=== PATIENT | male | born 1965 | race Caucasian/White ===

== ENCOUNTER 2021-02-07 15:24 | Inpatient (IN) | payer MEDICAID ==
[~2021-02-07] VITALS: Ht 177.8 cm; Wt 102.3 kg
[2021-02-07] MEDS ORDERED: acetaminophen 325mg tablet PO STA (15:53)
[2021-02-07] MEDS ORDERED: normal saline 1000ML IV soln IV ONE (15:55)
[2021-02-07] MEDS ORDERED: dexamethasone sod phosphate 10mg/ml inj IV STA (16:26)
[2021-02-07 16:28] LABS: BASOPHILS # (AUTO) 0.1 X10'3 (0-0.2); BASOPHILS % (AUTO) 0.8 % (0-1); EOSINOPHILS % (AUTO) 0.2 % (0-6); HEMATOCRIT 37.5 % (42.0-52.0); HEMOGLOBIN 13.3 g/dl (14.0-17.9); LYMPHOCYTES # (AUTO) 1.1 X10'3 (1.1-4.8); LYMPHOCYTES % (AUTO) 17.5 % (21-51); MEAN CORPUSCULAR HEMOGLOBIN 30.4 PG (27.0-31.0); MEAN CORPUSCULAR HGB CONC 35.4 g/dL (33.0-36.5); MEAN PLATELET VOLUME 6.7 FL (7.4-10.4); MONOCYTES # (AUTO) 0.5 X10'3 (0-0.9); MONOCYTES % (AUTO) 8.3 % (2-12); NEUTROPHILS # (AUTO) 4.5 X10'3 (1.8-7.7); NEUTROPHILS % (AUTO) 73.2 % (42-75); PLATELET COUNT 248 X10'3 (140-440); RED BLOOD COUNT 4.37 X10'6 (4.70-6.10); RED CELL DISTRIBUTION WIDTH 12.6 % (11.5-14.5); WHITE BLOOD COUNT 6.1 X10'3 (4.5-11.0)
[2021-02-07 16:42] LABS: ALANINE AMINOTRANSFERASE 22 U/L (12-78); ALBUMIN 3.2 G/DL (3.4-5.0); ALBUMIN/GLOBULIN RATIO 0.7 (1.1-1.5); ALKALINE PHOSPHATASE 80 IU/L (46-116); ANION GAP 10 (8-16); ASPARTATE AMINO TRANSFERASE 51 U/L (10-37); BILIRUBIN,TOTAL 0.6 MG/DL (0.1-1.0); BLOOD UREA NITROGEN 28 MG/DL (7-18); CALCIUM 8.7 MG/DL (8.5-10.1); CHLORIDE 100 MMOL/L (99-107); CREATININE 1.27 MG/DL (0.60-1.10); GLUCOSE 157 MG/DL (70-104); MAGNESIUM 1.9 MG/DL (1.5-2.4); POTASSIUM 3.7 MMOL/L (3.5-5.1); SODIUM 137 MMOL/L (135-145); TOTAL CARBON DIOXIDE 27.3 MMOL/L (24-32); TOTAL PROTEIN 7.8 G/DL (6.4-8.2); eGFR 59 ML/MIN
[2021-02-07 16:54] LABS: MICROCYTOSIS 1+; PLATELET ESTIMATE NORMAL; TOTAL CELLS COUNTED 100
[2021-02-07] MEDS ORDERED: CefTRIAXone 2gm/D5W 50ml BAG 50 ML IV ONE (17:50)
[2021-02-07 18:09] LABS: CLARITY,URINE CLEAR (Clear); COLOR,URINE YELLOW (Yellow); GLUCOSE, URINE NEGATIVE (Neg); KETONES,URINE NEGATIVE (Neg); LEUKOCYTE ESTERASE ,URINE NEGATIVE (Neg); NITRITES, URINE NEGATIVE (Neg); OCCULT BLOOD,URINE NEGATIVE (Neg); PROTEIN,URINE 30 mg/dl (Neg); UROBILINOGEN,URINE 0.2 E.U/dL (0.2-1.0)
[2021-02-07 18:12] LABS: UA COLLECTION TYPE VOIDED
[2021-02-07 18:15] LABS: BACTERIA,URINE NONE SEEN /HPF (Neg); HYALINE CASTS 0-3 /LPF (NEGATIVE); MUCUS STRANDS FEW /LPF (Neg); RBC,URINE NONE SEEN /HPF (0-2); SQUAMOUS EPITHELIAL CELL,UR FEW /LPF (FEW); WBC,URINE 0-4 /HPF (0-4)
[2021-02-07] MEDS ORDERED: furosemide 10 MG/1 ML 10ml inj IV ONE (19:15)
[2021-02-07] MEDS ORDERED: furosemide 20 MG/2 ML vial IV ONE (19:20)
--- NOTE | 2021-02-07 19:28 | NUR ---
Hold lasix for further evaluation
[2021-02-07] MEDS ORDERED: DEXAMETHASONE 6 MG TABLET PO ONE (20:00)
[2021-02-07] MEDS: enoxaparin 40mg/0.4ml syringe SUBCUT SCH (20:00)
[2021-02-07] MEDS ORDERED: enoxaparin 40mg/0.4ml syringe SUBCUT SCH (20:10)
[2021-02-07] MEDS ORDERED: magnesium 4gm in 100ml NS 100 ML IV PRN (20:10)
[2021-02-07] MEDS ORDERED: potassium Cl 40MEQ/1/2NS 520ml 520 ML IV PRN ×2 (20:10)
[2021-02-07] MEDS ORDERED: potassium Cl 20 mEq SR tablet PO PRN ×2 (20:10)
[2021-02-07] MEDS: normal saline 1000ml 1,000 ML IV SCH (20:10)
[2021-02-07] MEDS ORDERED: acetaminophen 325mg tablet PO PRN (20:10)
[2021-02-07] MEDS ORDERED: magnesium Cl slow-release 64mg tablet PO PRN (20:10)
[2021-02-07] MEDS ORDERED: magnesium 2GM in 50ml NS 50 ML IV PRN (20:10)
[2021-02-07] MEDS ORDERED: ondansetron/PF 4mg/2ml inj IV PRN (20:10)
[2021-02-07 20:19] LABS: D-DIMER 1.58 MG/L FEU (0-0.50)
[2021-02-07] MEDS ORDERED: REMDESIVIR (EUA) 100mg inj. 200 MG in normal saline 100ml IV soln 60 ML IV ONE (20:45)
[2021-02-07 20:57] LABS: C-REACTIVE PROTEIN 12.97 MG/DL (0.0-0.5)
[2021-02-08] MEDS: normal saline 1000ml 1,000 ML IV SCH ×3 (06:09→22:21)
[2021-02-08 06:26] LABS: D-DIMER 2.51 MG/L FEU (0-0.50)
[2021-02-08 06:32] LABS: ALBUMIN 2.7 G/DL (3.4-5.0); ANION GAP 10 (8-16); BLOOD UREA NITROGEN 27 MG/DL (7-18); BUN/CREATININE RATIO 28.1 (5.4-32.0); C-REACTIVE PROTEIN 12.47 MG/DL (0.0-0.5); CALCIUM 8.1 MG/DL (8.5-10.1); CHLORIDE 105 MMOL/L (99-107); CREATININE 0.96 MG/DL (0.60-1.10); GLUCOSE 197 MG/DL (70-104); MAGNESIUM 2.1 MG/DL (1.5-2.4); SODIUM 141 MMOL/L (135-145); TOTAL CARBON DIOXIDE 25.6 MMOL/L (24-32); eGFR 82 ML/MIN
[2021-02-08 06:34] LABS: POTASSIUM 4.3 MMOL/L (3.5-5.1)
[2021-02-08 06:35] LABS: BASOPHILS % (AUTO) 0.6 % (0-1); EOSINOPHILS % (AUTO) 0 % (0-6); HEMATOCRIT 34.1 % (42.0-52.0); HEMOGLOBIN 12.1 g/dl (14.0-17.9); LYMPHOCYTES # (AUTO) 0.5 X10'3 (1.1-4.8); LYMPHOCYTES % (AUTO) 13.3 % (21-51); MEAN CORPUSCULAR HEMOGLOBIN 31.6 PG (27.0-31.0); MEAN CORPUSCULAR HGB CONC 35.5 g/dL (33.0-36.5); MEAN CORPUSCULAR VOLUME 89.2 FL (78-98); MONOCYTES # (AUTO) 0.3 X10'3 (0-0.9); MONOCYTES % (AUTO) 8.4 % (2-12); NEUTROPHILS % (AUTO) 77.7 % (42-75); PLATELET COUNT 237 X10'3 (140-440); RED BLOOD COUNT 3.83 X10'6 (4.70-6.10); RED CELL DISTRIBUTION WIDTH 12.7 % (11.5-14.5); WHITE BLOOD COUNT 3.8 X10'3 (4.5-11.0)
[2021-02-08] MEDS ORDERED: CefTRIAXone/D5W-Rocephin 1gm 50 ML IV SCH (08:00)
[2021-02-08] MEDS ORDERED: dexamethasone 4mg tablet PO SCH (08:00)
[2021-02-08] MEDS: REMDESIVIR (EUA) 100mg inj. 100 MG in normal saline 100ml IV soln 80 ML IV SCH (08:00)
[2021-02-08] MEDS ORDERED: REMDESIVIR (EUA) 100mg inj. 100 MG in normal saline 100ml IV soln 80 ML IV SCH (08:00)
[2021-02-08] MEDS: DEXAMETHASONE 6 MG TABLET PO SCH ×2 (08:29→19:45)
[2021-02-08] MEDS: CefTRIAXone 2gm/D5W 50ml BAG 50 ML IV SCH (08:29)
[2021-02-08] MEDS: enoxaparin 40mg/0.4ml syringe SUBCUT SCH ×2 (08:30→19:46)
[2021-02-08] MEDS ORDERED: NO HOME MEDS (11:01)
--- NOTE | 2021-02-08 11:50 | NUR ---
Patient in room PCU 3008. I have received report from Snow Vigil and had the opportunity to ask questions and assume patient care.
[2021-02-08] MEDS: K and/or MAG REPLACEMENT MC SCH ×2 (12:19→20:00)
[2021-02-08 12:30] VITALS: BP 135/85
[2021-02-08 15:00] VITALS: BP 135/84
--- NOTE | 2021-02-08 18:40 | NUR ---
Problems reprioritized. Patient report given, questions answered & plan of care reviewed with Pat Rn.
[2021-02-08 19:00] VITALS: BP 126/80
--- NOTE | 2021-02-08 19:00 | NUR ---
juan SOB at rest Addendum: 02/09/21 at 0036 by Adeline Flowers RN Amended: Links added.
[2021-02-08 23:00] VITALS: BP 130/91
[2021-02-09 03:00] VITALS: BP 125/86
[2021-02-09 06:00] VITALS: BP 131/90
--- NOTE | 2021-02-09 06:25 | NUR ---
Patient in room PCU 3008. I have received report from Janice Rn and had the opportunity to ask questions and assume patient care.
[2021-02-09 07:11] LABS: BASOPHILS % (AUTO) 0.2 % (0-1); EOSINOPHILS % (AUTO) 0.1 % (0-6); HEMATOCRIT 35.7 % (42.0-52.0); HEMOGLOBIN 12.5 g/dl (14.0-17.9); LYMPHOCYTES # (AUTO) 0.6 X10'3 (1.1-4.8); LYMPHOCYTES % (AUTO) 8.1 % (21-51); MEAN CORPUSCULAR VOLUME 88.7 FL (78-98); MEAN PLATELET VOLUME 6.9 FL (7.4-10.4); MONOCYTES # (AUTO) 0.6 X10'3 (0-0.9); MONOCYTES % (AUTO) 7.7 % (2-12); NEUTROPHILS # (AUTO) 6.4 X10'3 (1.8-7.7); NEUTROPHILS % (AUTO) 83.9 % (42-75); PLATELET COUNT 309 X10'3 (140-440); RED BLOOD COUNT 4.03 X10'6 (4.70-6.10); RED CELL DISTRIBUTION WIDTH 12.8 % (11.5-14.5); WHITE BLOOD COUNT 7.6 X10'3 (4.5-11.0)
[2021-02-09 07:22] LABS: D-DIMER 1.71 MG/L FEU (0-0.50)
[2021-02-09 07:25] LABS: ALBUMIN 2.6 G/DL (3.4-5.0); ANION GAP 9 (8-16); BLOOD UREA NITROGEN 29 MG/DL (7-18); C-REACTIVE PROTEIN 4.58 MG/DL (0.0-0.5); CALCIUM 8.4 MG/DL (8.5-10.1); CHLORIDE 109 MMOL/L (99-107); CREATININE 0.88 MG/DL (0.60-1.10); GLUCOSE 190 MG/DL (70-104); MAGNESIUM 2.2 MG/DL (1.5-2.4); POTASSIUM 3.9 MMOL/L (3.5-5.1); SODIUM 143 MMOL/L (135-145); TOTAL CARBON DIOXIDE 25.1 MMOL/L (24-32); eGFR > 90 ML/MIN
[2021-02-09] MEDS: K and/or MAG REPLACEMENT MC SCH ×2 (08:00→20:00)
[2021-02-09] MEDS: enoxaparin 40mg/0.4ml syringe SUBCUT SCH ×2 (08:14→19:41)
[2021-02-09] MEDS: CefTRIAXone 2gm/D5W 50ml BAG 50 ML IV SCH (08:14)
[2021-02-09] MEDS: DEXAMETHASONE 6 MG TABLET PO SCH ×2 (08:14→19:41)
[2021-02-09] MEDS: REMDESIVIR (EUA) 100mg inj. 100 MG in normal saline 100ml IV soln 80 ML IV SCH (10:03)
[2021-02-09 11:00] VITALS: BP 128/85
[2021-02-09] MEDS: normal saline 1000ml 1,000 ML IV SCH ×2 (11:51→19:42)
[2021-02-09 15:00] VITALS: BP 149/90
--- NOTE | 2021-02-09 18:32 | NUR ---
Problems reprioritized. Patient report given, questions answered & plan of care reviewed with Zenobia Vigil.
--- NOTE | 2021-02-09 18:35 | NUR ---
Patient in room PCU 3008. I have received report from IDA RICE and had the opportunity to ask questions and assume patient care.
[2021-02-09 19:00] VITALS: BP 149/97
[2021-02-09] MEDS: lactobacillus rhamnosus 10,000 MMU CELLS/CAPSULE PO SCH (19:41)
[2021-02-09 23:00] VITALS: BP 129/80
[2021-02-10 03:00] VITALS: BP 131/76
[2021-02-10] MEDS: normal saline 1000ml 1,000 ML IV SCH ×2 (03:35→20:52)
[2021-02-10 06:00] VITALS: BP 139/91
--- NOTE | 2021-02-10 06:02 | NUR ---
Problems reprioritized. Patient report given, questions answered & plan of care reviewed with OLIVIAE RN.
--- NOTE | 2021-02-10 06:23 | NUR ---
Patient in room PCU 3008. I have received report from Zenobia Vigil and had the opportunity to ask questions and assume patient care.
[2021-02-10] MEDS: DEXAMETHASONE 6 MG TABLET PO SCH ×2 (07:14→20:52)
[2021-02-10] MEDS: enoxaparin 40mg/0.4ml syringe SUBCUT SCH ×2 (07:14→20:52)
[2021-02-10] MEDS: REMDESIVIR (EUA) 100mg inj. 100 MG in normal saline 100ml IV soln 80 ML IV SCH (07:14)
[2021-02-10] MEDS: lactobacillus rhamnosus 10,000 MMU CELLS/CAPSULE PO SCH ×2 (07:14→20:52)
[2021-02-10 07:15] LABS: HEMOGLOBIN 11.7 g/dl (14.0-17.9); MONOCYTES # (AUTO) 0.5 X10'3 (0-0.9)
[2021-02-10 07:16] LABS: BASOPHILS % (AUTO) 0.2 % (0-1); EOSINOPHILS # (AUTO) 0.2 X10'3 (0-0.9); EOSINOPHILS % (AUTO) 2.2 % (0-6); HEMATOCRIT 33.9 % (42.0-52.0); LYMPHOCYTES # (AUTO) 0.5 X10'3 (1.1-4.8); LYMPHOCYTES % (AUTO) 5.4 % (21-51); MEAN CORPUSCULAR HEMOGLOBIN 30.3 PG (27.0-31.0); MEAN CORPUSCULAR HGB CONC 34.4 g/dL (33.0-36.5); MEAN PLATELET VOLUME 6.4 FL (7.4-10.4); MONOCYTES % (AUTO) 5.6 % (2-12); NEUTROPHILS # (AUTO) 7.8 X10'3 (1.8-7.7); NEUTROPHILS % (AUTO) 86.6 % (42-75); PLATELET COUNT 389 X10'3 (140-440); RED BLOOD COUNT 3.85 X10'6 (4.70-6.10); RED CELL DISTRIBUTION WIDTH 12.8 % (11.5-14.5)
[2021-02-10 07:25] LABS: D-DIMER 2.32 MG/L FEU (0-0.50)
[2021-02-10 07:31] LABS: ALBUMIN 2.6 G/DL (3.4-5.0); ANION GAP 10 (8-16); BLOOD UREA NITROGEN 31 MG/DL (7-18); C-REACTIVE PROTEIN 2.03 MG/DL (0.0-0.5); CALCIUM 8.2 MG/DL (8.5-10.1); CHLORIDE 112 MMOL/L (99-107); CREATININE 0.97 MG/DL (0.60-1.10); GLUCOSE 186 MG/DL (70-104); MAGNESIUM 2.5 MG/DL (1.5-2.4); POTASSIUM 4.4 MMOL/L (3.5-5.1); SODIUM 146 MMOL/L (135-145); TOTAL CARBON DIOXIDE 23.9 MMOL/L (24-32); eGFR 81 ML/MIN
[2021-02-10] MEDS: K and/or MAG REPLACEMENT MC SCH ×2 (08:00→20:00)
[2021-02-10] MEDS: CefTRIAXone 2gm/D5W 50ml BAG 50 ML IV SCH (08:29)
[2021-02-10 11:00] VITALS: BP 138/90
[2021-02-10 15:00] VITALS: BP 144/92
--- NOTE | 2021-02-10 18:43 | NUR ---
Problems reprioritized. Patient report given, questions answered & plan of care reviewed with Jayshree Vigil.
--- NOTE | 2021-02-10 18:45 | NUR ---
Patient in room PCU 3008. I have received report from KRYSTAL Cote and had the opportunity to ask questions and assume patient care.
[2021-02-10 22:00] VITALS: BP 126/70
[2021-02-11 02:00] VITALS: BP 128/65
[2021-02-11] MEDS: normal saline 1000ml 1,000 ML IV SCH (04:32)
--- NOTE | 2021-02-11 06:04 | NUR ---
Problems reprioritized. Patient report given, questions answered & plan of care reviewed with KRYSTAL Monzon.
--- NOTE | 2021-02-11 06:22 | NUR ---
Patient in room PCU 3008. I have received report from Jayshree RICE and had the opportunity to ask questions and assume patient care.
[2021-02-11 06:31] LABS: EOSINOPHILS % (AUTO) 0 % (0-6); HEMATOCRIT 34.4 % (42.0-52.0); HEMOGLOBIN 11.6 g/dl (14.0-17.9); LYMPHOCYTES # (AUTO) 0.7 X10'3 (1.1-4.8); MEAN PLATELET VOLUME 6.5 FL (7.4-10.4)
[2021-02-11 06:35] LABS: BASOPHILS % (AUTO) 0.1 % (0-1); LYMPHOCYTES % (AUTO) 6.7 % (21-51); MEAN CORPUSCULAR HEMOGLOBIN 29.8 PG (27.0-31.0); MEAN CORPUSCULAR HGB CONC 33.6 g/dL (33.0-36.5); MEAN CORPUSCULAR VOLUME 88.7 FL (78-98); MONOCYTES # (AUTO) 0.7 X10'3 (0-0.9); MONOCYTES % (AUTO) 6.1 % (2-12); NEUTROPHILS # (AUTO) 9.6 X10'3 (1.8-7.7); NEUTROPHILS % (AUTO) 87.1 % (42-75); PLATELET COUNT 432 X10'3 (140-440); RED BLOOD COUNT 3.88 X10'6 (4.70-6.10); RED CELL DISTRIBUTION WIDTH 12.5 % (11.5-14.5)
[2021-02-11 06:36] LABS: D-DIMER 3.64 MG/L FEU (0-0.50)
[2021-02-11 06:45] LABS: ALBUMIN 2.6 G/DL (3.4-5.0); ANION GAP 8 (8-16); BLOOD UREA NITROGEN 24 MG/DL (7-18); BUN/CREATININE RATIO 25.8 (5.4-32.0); C-REACTIVE PROTEIN 1.15 MG/DL (0.0-0.5); CALCIUM 8.3 MG/DL (8.5-10.1); CHLORIDE 111 MMOL/L (99-107); CREATININE 0.93 MG/DL (0.60-1.10); GLUCOSE 180 MG/DL (70-104); MAGNESIUM 1.9 MG/DL (1.5-2.4); POTASSIUM 4.1 MMOL/L (3.5-5.1); SODIUM 143 MMOL/L (135-145); TOTAL CARBON DIOXIDE 23.6 MMOL/L (24-32); eGFR 85 ML/MIN
[2021-02-11 07:00] VITALS: BP 153/93
[2021-02-11] MEDS: DEXAMETHASONE 6 MG TABLET PO SCH (07:09)
[2021-02-11] MEDS: REMDESIVIR (EUA) 100mg inj. 100 MG in normal saline 100ml IV soln 80 ML IV SCH (07:09)
[2021-02-11] MEDS: lactobacillus rhamnosus 10,000 MMU CELLS/CAPSULE PO SCH (07:09)
[2021-02-11] MEDS: enoxaparin 40mg/0.4ml syringe SUBCUT SCH (07:10)
[2021-02-11 07:25] LABS: NUCLEATED RED BLOOD CELLS 2 /100WBC (0-0); TOTAL CELLS COUNTED 100
[2021-02-11 07:26] LABS: PLATELET ESTIMATE NORMAL
[2021-02-11 07:27] LABS: ANISOCYTOSIS 1+
[2021-02-11] MEDS: K and/or MAG REPLACEMENT MC SCH (08:00)
[2021-02-11 11:00] VITALS: BP 156/94
--- NOTE | 2021-02-11 13:22 | NUR ---
Initial: Pt admit with acute respiratory failure secondary to COVID with JOSE. Pt on a heart healthy diet and eating well with average 75-100% PO intake throughout LOS. LB 02/08. No nutrition intervention implemented at this time. Will continue to follow. Recommendations: 1) Advance to regular diet as medically indicated 2) Monitor need for additional protein for satiety 3) Bowel care per rx 4) Scaled weight this admit; weekly scaled weights thereafter Addendum: 02/11/21 at [address] Amended: Links added.
[2021-02-11] MEDS ORDERED: ALBU8.5H17 INH (13:48)
[2021-02-11] MEDS ORDERED: LACT1CAP26 PO (13:48)
[2021-02-11] MEDS ORDERED: BENZ-16 PO (13:48)
[2021-02-11] MEDS ORDERED: RIVA10TA PO (13:56)
--- NOTE | 2021-02-11 15:25 | NUR ---
Patient stable for discharge per Dr. Caballero. PIV DC'd with cannula intact and Tele DC'd. Patient verbalized understanding of medication regimen and continuing isolation at home, He was transported home by his spouse in the family vehicle.
== END 2021-02-11 15:00 | disposition home or self-care (01) | DRG 720 ==
LOC: ER 15:24 → ED HOLD 20:12 → PCU 3S 02-08 11:00
PROVIDERS: ADMIT Internal Medicine; ATTEND Internal Medicine
PROC: XW033E5 Introduction of Remdesivir Anti-infective into Peripheral Vein, Percutaneous Approach, New Technology Group 5 (ICD-10-PCS; principal; 2021-02-07)
DX: A41.9 Sepsis, unspecified organism (principal); J96.01 Acute respiratory failure with hypoxia; J12.82 Pneumonia due to coronavirus disease 2019; N17.0 Acute kidney failure with tubular necrosis; U07.1 COVID-19; E66.01 Morbid (severe) obesity due to excess calories; I10 Essential (primary) hypertension; Z68.32 Body mass index [BMI] 32.0-32.9, adult; Z79.01 Long term (current) use of anticoagulants
CPT/HCPCS: 36415; 71045; 80048; 80053; 81001; 83605; 83735; 84145; 85007; 85025; 85379; 86140; 87040; 87081; 87635; 93005; 96361; 96365; 96375; 99285; C9803; G0378; J0696; J1100; J1650; J7030; J8540